=== PATIENT | male | born 1970 | race Caucasian/White ===

== ENCOUNTER 2017-04-01 00:49 | Emergency (ER) | payer OTHER ==
[~2017-04-01] VITALS: Ht 182.9 cm; Wt 108.9 kg
[2017-04-01] MEDS ORDERED: SODIUM CHLORIDE 0.9% 1000ML 1,000 ML IV ONE (01:45)
[2017-04-01] MEDS ORDERED: CRESTOR40 MG (02:18)
[2017-04-01] MEDS ORDERED: FENOFIBRATE145 MG PO (02:18)
[2017-04-01] MEDS ORDERED: METFORMIN HCL500 MG PO (02:18)
[2017-04-01] MEDS ORDERED: PLAVIX75 MG PO (02:18)
[2017-04-01] MEDS ORDERED: GLIPIZIDE5 MG PO (02:18)
[2017-04-01] MEDS ORDERED: ASPIR 8181 MG (02:18)
[2017-04-01] MEDS ORDERED: TYLENOL WITH C1 EACH PO (04:07)
[2017-04-01] MEDS ORDERED: ZOFRAN ODT4 MG PO (04:08)
[2017-04-01] MEDS ORDERED: FLOMAX0.4 MG PO (04:09)
== END 2017-04-01 04:16 | disposition home or self-care (01) ==
LOC: FSED 00:49
DX: R10.32 Left lower quadrant pain (principal); R11.0 Nausea; N20.2 Calculus of kidney with calculus of ureter; I10 Essential (primary) hypertension; E11.9 Type 2 diabetes mellitus without complications; I51.9 Heart disease, unspecified
CPT/HCPCS: 74176; 80048; 85025; 99283; J7030

== ENCOUNTER 2018-07-27 22:46 | Emergency (ER) | payer OTHER ==
[~2018-07-27] VITALS: Ht 180.3 cm; Wt 115.2 kg
[~2018-07-27 22:46] MED LIST: ASPIR 8181 MG; CRESTOR40 MG; FENOFIBRATE145 MG PO; FLOMAX0.4 MG PO; GLIPIZIDE5 MG PO; METFORMIN HCL500 MG PO; PLAVIX75 MG PO; TYLENOL WITH C1 EACH PO; ZOFRAN ODT4 MG PO
--- OUTSIDE RECORDS SUMMARY | 2018-07-27 22:49 | XMS REPORT | Clinical Summary ---
Author [facility] Address Unknown Phone Unavailable Care Team Providers Care Assembler Clip On Sunglasses Name Role Phone Siria Cerna MD PCP Unavailable Allergies Comments Active Allergy Reactions Severity Noted Date Uvula swelling Lisinopril Swelling 08/25/2014 Medications End Date Status Medication Sig Dispensed Refills Start Date Active clopidogrel (PLAVIX) 75 Take 75 mg by 0 mg tablet mouth daily. Active aspirin 81 MG EC tablet Take 81 mg by 0 mouth daily. Active metFORMIN (GLUCOPHAGE) Take 1,000 mg 0 1000 MG tablet by mouth 2 (two) times daily with breakfast and dinner. Active rosuvastatin (CRESTOR) 10 Take 40 mg by 0 MG tablet mouth daily . Active glipiZIDE (GLUCOTROL) 10 Take 5 mg by 0 MG tablet mouth daily . Active sertraline (ZOLOFT) 25 MG Take 25 mg by 0 tablet mouth daily. Active fenofibrate micronized Take 200 mg 0 (LOFIBRA) 200 MG capsule by mouth every morning before breakfast. 10/20/2018 Active carvedilol (COREG) 12.5 Take 1 tablet 180 tablet 3 10/20/201 MG tablet (12.5 mg 8 total) by mouth 2 (two) times daily. 10/19/2017 Discontinued lisinopril Take 5 mg by 0 (PRINIVIL,ZESTRIL) 5 MG mouth daily. tablet 10/19/2017 Discontinued atorvastatin (LIPITOR) 40 Take 40 mg by 0 MG tablet mouth daily. Active Problems Problem Noted Date Exertional angina 11/16/2017 Abnormal nuclear stress test 10/19/2017 CAD (coronary artery disease) 06/13/2014 Chest pain 06/12/2014 Hypertension Encounters Care Team Description Date Type Specialty Holden Bingham MD L CATH & PCI 11/16/2017 Surgery Holden Bingham MD Coronary artery disease due to lipid rich plaque (Primary Dx) 11/16/2017 Hospital Cardiology - Encounter 11/17/2017 Skip Kothari MD L CATH & CORONARY ANGIOS 10/19/2017 Surgery Skip Kothari MD Coronary artery disease due to lipid rich plaque (Primary Dx) 10/19/2017 Hospital Cardiology - Encounter 10/20/2017 after 07/26/2017 Family History Medical History Relation Name Comments COPD Father Heart disease Father Relation Name Status Comments Father Social History Date Tobacco Use Types Packs/Day Years Used Former Smoker 0.25 20 Smokeless Tobacco: Never Used Tobacco Cessation: Ready to Quit: No; Counseling Given: No Comments: quit 2014. Alcohol Use Drinks/Week oz/Week Comments No Sex Assigned at Date Recorded Not on file Industry Job Start Date Occupation Not on file Not on file Not on file Travel End Travel History Travel Start No recent travel history available. Last Filed Vital Signs Time Taken Vital Sign Reading 11/17/2017 8:30 AM CDT Blood Pressure 128/70 11/17/2017 8:30 AM CDT Pulse 60 11/17/2017 8:30 AM CDT Temperature 36.7 C (98 F) 11/17/2017 8:30 AM CDT Respiratory Rate 17 11/17/2017 8:30 AM CDT Oxygen Saturation 95% - Inhaled Oxygen - Concentration 11/17/2017 8:30 AM CDT Weight 109 kg (240 lb 6.4 oz) 11/16/2017 5:25 AM CDT Height 180.3 cm (5' 11") 11/17/2017 8:30 AM CDT Body Mass Index 33.53 Plan of Treatment Not on file Implants Device Identifier Shelf Expiration Date Model / Serial / Lot Implanted Type Area Manufactur [id number] 04/28/2018 [id number] / / [id number] Synergy Cardiovasc N/A: Heart [place] Implanted: Qty: 1 on 11/16/2017 by Holden Bullock MD [id number] 04/10/2018 [id number] / / [id number] Synergy Cardiovasc N/A: Heart [place] Implanted: Qty: 1 on 11/16/2017 by Holden Bullock MD 12/21/2017 [id number] / / [id number] Synergy Stents-Cor Left: Coronary [place] Implanted: Qty: 1 on 10/19/2017 by sanchez SCI:Holden Gomez MD CARDIOLOGY 05/21/2015 [id number] / / [id number] Resolute Integrity Otw [employer] Implanted: Qty: 1 on 06/13/2014 Procedures Comments Procedure Name Priority Date/Time Associated Diagnosis VASCULAR DIAGRAM -SCAN 06/05/2018 11:50 AM CDT RHYTHM STRIP - SCAN 05/30/2018 6:20 AM CDT VASCULAR DIAGRAM -SCAN 12/29/2017 2:00 PM PILOT VASCULAR DIAGRAM -SCAN 12/29/2017 1:41 PM PILOT VASCULAR DIAGRAM -SCAN 11/20/2017 2:21 PM CDT REPORT OF PROCEDURE - 11/20/2017 ENDOSCOPY SCAN 2:21 PM CDT CARDIAC CATH REPORT - 11/20/2017 SCAN 2:21 PM CDT RHYTHM STRIP - SCAN 11/20/2017 2:21 PM CDT POCT-GLUCOSE METER Routine 11/17/2017 8:31 AM CDT CBC (HEMOGRAM ONLY) Routine 11/17/2017 4:00 AM CDT BASIC METABOLIC PANEL (7) Routine 11/17/2017 3:59 AM CDT POCT-GLUCOSE METER Routine 11/16/2017 9:53 PM CDT POCT-ACT Routine 11/16/2017 1:14 PM CDT POCT-ACT Routine 11/16/2017 11:45 AM CDT POCT-GLUCOSE METER Routine 11/16/2017 10:46 AM CDT POCT-ACT Routine 11/16/2017 9:10 AM CDT POCT-ACT Routine 11/16/2017 8:46 AM CDT POCT-ACT Routine 11/16/2017 8:36 AM CDT POCT-ACT Routine 11/16/2017 8:09 AM CDT L CATH & PCI 11/16/2017 Atherosclerosis of [place] 7:30 AM CDT coronary artery with angina pectoris, unspecified whether [place] or transplanted heart (HCC) Case Notes (1) CASE POP6 PCI OF RCI. 1757mGy VASCULAR DIAGRAM -SCAN 10/25/2017 11:00 AM CDT REPORT OF PROCEDURE - 10/25/2017 ENDOSCOPY SCAN 11:00 AM CDT CARDIAC CATH REPORT - 10/25/2017 SCAN 11:00 AM CDT RHYTHM STRIP - SCAN 10/25/2017 11:00 AM CDT CBC (HEMOGRAM ONLY) Routine 10/20/2017 4:05 AM CDT BUN AND CREATININE Routine 10/20/2017 4:05 AM CDT ELECTROLYTE PANEL Routine 10/20/2017 4:05 AM CDT POCT-ACT Routine 10/19/2017 1:52 PM CDT POCT-ACT Routine 10/19/2017 10:26 AM CDT L CATH & CORONARY ANGIOS 10/19/2017 Abnormal nuclear stress 9:05 AM CDT test Case Notes (2) Case, 6T OP, POSS PCI after 07/26/2017 Results * VASCULAR DIAGRAM -SCAN (06/05/2018 11:50 AM CDT) Only the most recent of 5 results within the time period is included. Narrative Performed At * RHYTHM STRIP - SCAN (05/30/2018 6:20 AM CDT) Only the most recent of 3 results within the time period is included. Narrative Performed At * EKG-SCANNED (11/20/2017 2:21 PM CDT) Only the most recent of 2 results within the time period is included. Narrative Performed At * CARDIAC CATH REPORT - SCAN (11/20/2017 2:21 PM CDT) Narrative Performed At * POC-Glucose meter (11/17/2017 8:31 AM CDT) Only the most recent of 3 results within the time period is included. POC-Glucose Meter 151 (H)Comment: TESTED AT 70 - 110 mg/dL [facility] [address] [facility] [address] Specimen Blood Performing Organization Address City/[facility]/Zipcode Phone Number [facility] [address] [place] [address] [facility] * CBC (Hemogram only) (11/17/2017 4:00 AM CDT) Only the most recent of 2 results within the time period is included. WBC 5.0 3.5 - 10.5 K/L [facility] RBC 3.90 (L) 4.63 - 6.08 M/L [facility] Hemoglobin 11.7 (L) 13.7 - 17.5 GM/DL [facility] Hematocrit 36.7 (L) 40.1 - 51.0 % [facility] MCV 94.1 (H) 79.0 - 92.2 fL [facility] MCH 30.0 25.7 - 32.2 pg [facility] MCHC 31.9 (L) 32.3 - 36.5 GM/DL [facility] RDW 14.0 11.6 - 14.4 % [facility] Platelets 154 150 - 450 K/CU MM [facility] MPV 11.1 9.4 - 12.4 fL [facility] nRBC 0 0 - 0 /100 WBC [facility] Specimen Blood Performing Organization Address City/State/Zipcode Phone Number [facility] [address] [place] [address] [facility] * Basic metabolic panel (11/17/2017 3:59 AM CDT) Sodium 141 136 - 145 meq/L [facility] Potassium 4.0 3.5 - 5.1 meq/L [facility] Chloride 110 (H) 98 - 107 meq/L [facility] CO2 25 22 - 29 meq/L [facility] BUN 10 7 - 21 mg/dL [facility] Creatinine 1.04 0.57 - 1.25 mg/dL [facility] Glucose 144 (H) 70 - 105 mg/dL [facility] Calcium 8.9 8.4 - 10.2 mg/dL [facility] EGFR 77Comment: ESTIMATED GFR IS mL/min/1.73 sq m [facility] NOT ACCURATE CREATININE [facility] CLEARANCE IN PREDICTING GLOMERULAR FILTRATION RATE. ESTIMATED GFR IS NOT APPLICABLE FOR DIALYSIS PATIENTS. Specimen Blood Performing Organization Address City/[facility] Phone Number [address] * POC ACTIVATED CLOTTING TIME (11/16/2017 1:14 PM CDT) Only the most recent of 8 results within the time period is included. Activated Clotting Time 114Comment: TESTED AT [facility] sec [address] Specimen Blood Performing Organization Address [facility] Phone Number [address] * CARDIAC CATH REPORT - SCAN (10/25/2017 11:00 AM CDT) Narrative Performed At * BUN and Creatinine (10/20/2017 4:05 AM CDT) BUN 9 7 - 21 mg/dL [facility] Creatinine 0.96 0.57 - 1.25 mg/dL [facility] EGFR 84Comment: ESTIMATED GFR IS mL/min/1.73 sq m [facility] NOT ACCURATE CREATININE [facility] CLEARANCE IN PREDICTING GLOMERULAR FILTRATION RATE. ESTIMATED GFR IS NOT APPLICABLE FOR DIALYSIS PATIENTS. Specimen Blood Performing Organization Address City/[facility] [place] [address] [facility] * Electrolytes (10/20/2017 4:05 AM CDT) Sodium 138 136 - 145 meq/L [facility] Potassium 4.2 3.5 - 5.1 meq/L [facility] Chloride 106 98 - 107 meq/L [facility] CO2 23 22 - 29 meq/L [facility] Specimen Blood Performing Organization Address City/State/Zipcode Phone Number [facility] [address] [place] [address] [facility] after 07/26/2017 Insurance Payer Benefit Subscriber ID Type Phone Address Plan / Group [employer] - MGD CARE C[employer] xxxxxxxxxxx HMO/POS [employer] Advance Directives For more information, please contact: [address] [phone] Date Inactivated Comments Code Status Date Activated 11/17/2017 12:08 PM Full Code 11/16/2017 5:48 AM This code status was determined by: Patient 10/20/2017 12:11 PM Full Code 10/19/2017 12:06 PM This code status was determined by: Patient 06/14/2014 3:24 PM Full Code 06/13/2014 7:18 PM This code status was determined by: Patient
--- OUTSIDE RECORDS SUMMARY | 2018-07-27 22:49 | XMS REPORT ---
Author Author [facility] Address Unknown Phone Unavailable Care Team Providers Care Operation Manager Name Role Phone ME RANCHOHRAN Unavailable Unavailable BHUMI BLOOM Unavailable Unavailable Problems This patient has no known problems. Allergies, Adverse Reactions, Alerts This patient has no known allergies or adverse reactions. Medications This patient has no known medications. Results Test Description Test Time Test Comments Text Results Atomic Results Result Comments POCT-GLUCOSE METER 2017-11-17 09:21:00 POC-GLUCOSE METER (BEAKER) (test zspi=6957) 151 mg/dL 70-110 TESTED AT [facility] [address] [place] [address] BASIC METABOLIC [id number] 05:02:00* Test Item Value Reference Range Comments SODIUM (BEAKER) (test uztq=349) 141 meq/L 136-145 POTASSIUM (BEAKER) (test ecrm=526) 4.0 meq/L 3.5-5.1 CHLORIDE (BEAKER) (test fhip=069) 110 meq/L 98-107 CO2 (BEAKER) (test bcdi=813) 25 meq/L 22-29 BLOOD UREA NITROGEN (BEAKER) (test ylzc=255) 10 mg/dL 7-21 CREATININE (BEAKER) (test vndu=790) 1.04 mg/dL 0.57-1.25 GLUCOSE RANDOM (BEAKER) (test ztql=753) 144 mg/dL 70-105 CALCIUM (BEAKER) (test hzzq=166) 8.9 mg/dL 8.4-10.2 EGFR (BEAKER) (test ulht=0596) 77 mL/min/1.73 sq m ESTIMATED GFR IS NOT ACCURATE CREATININE CLEARANCE IN PREDICTING GLOMERULAR FILTRATION RATE. ESTIMATED GFR IS NOT APPLICABLE FOR DIALYSIS PATIENTS. CBC (HEMOGRAM ONLY)2017-11-17 04:25:00* Test Item Value Reference Range Comments WHITE BLOOD CELL COUNT (BEAKER) (test oirv=401) 5.0 K/ L 3.5-10.5 RED BLOOD CELL COUNT (BEAKER) (test wlhe=306) 3.90 M/ L 4.63-6.08 HEMOGLOBIN (BEAKER) (test lpct=050) 11.7 GM/DL 13.7-17.5 HEMATOCRIT (BEAKER) (test tafg=049) 36.7 % 40.1-51.0 MEAN CORPUSCULAR VOLUME (BEAKER) (test lfgi=259) 94.1 fL 79.0-92.2 MEAN CORPUSCULAR HEMOGLOBIN (BEAKER) (test vjlp=064) 30.0 pg 25.7-32.2 MEAN CORPUSCULAR HEMOGLOBIN CONC (BEAKER) (test bsld=592) 31.9 GM/DL 32.3-36.5 RED CELL DISTRIBUTION WIDTH (BEAKER) (test ixxs=649) 14.0 % 11.6-14.4 PLATELET COUNT (BEAKER) (test cntw=911) 154 K/CU MM 150-450 MEAN PLATELET VOLUME (BEAKER) (test jsoe=174) 11.1 fL 9.4-12.4 NUCLEATED RED BLOOD CELLS (BEAKER) (test hnnn=460) 0 /100 WBC 0-0 POCT-GLUCOSE [id number] 22:35:00* Test Item Value Reference Range Comments POC-GLUCOSE METER (BEAKER) (test dpty=0590) 221 mg/dL 70-110 TESTED AT [place] [id number] 13:20:00* Test Item Value Reference Range Comments ACTIVATED CLOTTING TIME (BEAKER) (test oywt=399) 114 sec TESTED AT [place] [id number] POCT-GLUCOSE [id number] 12:35:00* Test Item Value Reference Range Comments POC-GLUCOSE METER (BEAKER) (test gjaq=1175) 136 mg/dL 70-110 TESTED AT [place] [id number] 12:10:00* Test Item Value Reference Range Comments ACTIVATED CLOTTING TIME (BEAKER) (test ugue=335) 142 sec TESTED AT [place] [id number] 09:33:00* Test Item Value Reference Range Comments ACTIVATED CLOTTING TIME (BEAKER) (test zcvl=380) 246 sec TESTED AT [place] [address] [id number] 09:33:00* Test Item Value Reference Range Comments ACTIVATED CLOTTING TIME (BEAKER) (test nxqm=550) 263 sec TESTED AT [place] [address] [id number] 09:33:00* Test Item Value Reference Range Comments ACTIVATED CLOTTING TIME (BEAKER) (test hxso=697) 224 sec TESTED AT [place] [address] [id number] 09:33:00* Test Item Value Reference Range Comments ACTIVATED CLOTTING TIME (BEAKER) (test xcsj=533) 318 sec TESTED AT [place] [address] [id number] 04:41:00* Test Item Value Reference Range Comments SODIUM (BEAKER) (test usnh=505) 138 meq/L 136-145 POTASSIUM (BEAKER) (test prqd=052) 4.2 meq/L 3.5-5.1 CHLORIDE (BEAKER) (test fzft=375) 106 meq/L 98-107 CO2 (BEAKER) (test fvqv=501) 23 meq/L 22-29 BUN AND [id number] 04:41:00* Test Item Value Reference Range Comments BLOOD UREA NITROGEN (BEAKER) (test pual=982) 9 mg/dL 7-21 CREATININE (BEAKER) (test uvgn=618) 0.96 mg/dL 0.57-1.25 EGFR (BEAKER) (test umth=1540) 84 mL/min/1.73 sq m ESTIMATED GFR IS NOT ACCURATE CREATININE CLEARANCE IN PREDICTING GLOMERULAR FILTRATION RATE. ESTIMATED GFR IS NOT APPLICABLE FOR DIALYSIS PATIENTS. CBC (HEMOGRAM ONLY)2017-10-20 04:26:00* Test Item Value Reference Range Comments WHITE BLOOD CELL COUNT (BEAKER) (test pwan=799) 5.1 K/ L 3.5-10.5 RED BLOOD CELL COUNT (BEAKER) (test kgkv=556) 4.22 M/ L 4.63-6.08 HEMOGLOBIN (BEAKER) (test gjam=429) 12.8 GM/DL 13.7-17.5 HEMATOCRIT (BEAKER) (test coky=709) 39.4 % 40.1-51.0 MEAN CORPUSCULAR VOLUME (BEAKER) (test fzjf=458) 93.4 fL 79.0-92.2 MEAN CORPUSCULAR HEMOGLOBIN (BEAKER) (test ueys=735) 30.3 pg 25.7-32.2 MEAN CORPUSCULAR HEMOGLOBIN CONC (BEAKER) (test fpnb=013) 32.5 GM/DL 32.3-36.5 RED CELL DISTRIBUTION WIDTH (BEAKER) (test ptrw=380) 13.6 % 11.6-14.4 PLATELET COUNT (BEAKER) (test lhcz=216) 164 K/CU MM 150-450 MEAN PLATELET VOLUME (BEAKER) (test sqxc=377) 11.2 fL 9.4-12.4 NUCLEATED RED BLOOD CELLS (BEAKER) (test phbc=511) 0 /100 WBC 0-0 [id number] 15:12:00* Test Item Value Reference Range Comments ACTIVATED CLOTTING TIME (BEAKER) (test maxb=005) 136 sec TESTED AT [place] [address] [id number] 10:32:00* Test Item Value Reference Range Comments ACTIVATED CLOTTING TIME (BEAKER) (test gfwl=737) 252 sec TESTED AT [place] [address]
[2018-07-27] MEDS ORDERED: SODIUM CHLORIDE 0.9% 500ML 500 ML IV STA (23:14)
[2018-07-27] MEDS ORDERED: SODIUM CHLORIDE 0.9% 500ML 500 ML ONE (23:21)
--- NOTE | 2018-07-28 00:01 | Diagnostic Imaging Report ---
EXAM: CT Abdomen and Pelvis WITHOUT contrast INDICATION: ^[id number] ^[id number] COMPARISON: None. TECHNIQUE: Abdomen and pelvis were scanned utilizing a multidetector helical scanner from the lung base to the pubic symphysis without administration of IV contrast. Absence of intravenous contrast decreases sensitivity for detection of focal lesions and vascular pathology. Coronal and sagittal reformations were obtained. Routine protocol was performed. IV CONTRAST: None ORAL CONTRAST: Water COMPLICATIONS: None RADIATION DOSE: Total DLP: 857.5 mGy*cm Estimated effective dose: (DLP x 0.015 x size factor) mSv CTDIvol has been reviewed. It is below the limits set by the Radiation Protocol Committee (RPC). FINDINGS: LINES and TUBES: None. LOWER THORAX: Partially seen atherosclerotic aspiration of coronary arteries and possible stent. HEPATOBILIARY: Diffuse hepatic steatosis. No biliary ductal dilation. GALLBLADDER: No radio-opaque stones or sludge. No wall thickening. SPLEEN: No splenomegaly. PANCREAS: No focal masses or ductal dilatation. ADRENALS: No adrenal nodules KIDNEYS/URETERS: No hydronephrosis. 4 mm right midpole calculus. There is also a 3 mm calculus within bladder, at the area of ureterovesical junction. GI TRACT: No abnormal distention, wall thickening, or evidence of bowel obstruction. Appendix is not visualized. PELVIC ORGANS/BLADDER: Bladder wall thickening, likely due to underdistention. Tiny bladder calculus as described above. LYMPH NODES: No lymphadenopathy. VESSELS: There is mild atherosclerotic disease in the aorta and major arterial branches. PERITONEUM / RETROPERITONEUM: No free air or fluid. BONES: Unremarkable. Left femoral intertrochanteric sclerotic focus, likely a bone island. SOFT TISSUES: Unremarkable. IMPRESSION: 1. Right renal subcentimeter nonobstructive calculus. 2. 3 mm calculus within bladder, in close proximity to the right ureterovesical junction, likely a recently passed stone. No right hydronephrosis. 3. Hepatic steatosis. Signed by: Dr. Remigio Barlow MD on 07/27/2018 11:58 PM
[2018-07-28 00:11] VITALS: BP 143/88
== END 2018-07-28 00:30 | disposition home or self-care (01) ==
LOC: FSED 22:46
DX: R10.31 Right lower quadrant pain (principal); R31.9 Hematuria, unspecified; N20.1 Calculus of ureter; E11.9 Type 2 diabetes mellitus without complications; I51.9 Heart disease, unspecified; E78.5 Hyperlipidemia, unspecified; I25.2 Old myocardial infarction; Z95.5 Presence of coronary angioplasty implant and graft
CPT/HCPCS: 74176; 80053; 81003; 85025; 99284; J7040